=== PATIENT | male | born 1960 | race Caucasian/White ===

== ENCOUNTER 2019-05-22 16:51 | Inpatient (IN) | payer BC ==
[~2019-05-22] VITALS: Ht 177.8 cm; Wt 110.8 kg
[2019-05-22 17:05] VITALS: BP 142/71
[2019-05-22 17:15] LABS: ABSOLUTE BASOPHILS 0.1 thou/uL (0.0-0.2); ABSOLUTE LYMPHOCYTES 0.8 thou/uL (0.8-5.3); ABSOLUTE MONOCYTES 1.4 thou/uL (0.0-1.2); ABSOLUTE NEUTROPHILS 11.4 thou/uL (1.6-8.1); BASOPHILS 0.5 %; EOSINOPHILS 0.1 %; HEMATOCRIT 44.2 % (42.0-52.0); HEMOGLOBIN 15.3 gm/dL (14.0-18.0); LYMPHOCYTES 5.7 %; MCH 31.5 pg (26.0-34.0); MCHC 34.6 g/dL (28.0-37.0); MCV 91.1 fL (80.0-100.0); MPV 8.8 fl. (7.2-11.1); NUCLEATED RBCS 0 /100WBC; PLATELET COUNT* 185 thou/uL (150-400); POLYS 83.7 %; RBC 4.85 mil/uL (4.50-6.00); RDW-CV 12.4 % (10.5-14.5); WBC 13.6 thou/uL (4.0-11.0)
[2019-05-22 17:24] LABS: CALCIUM 8.5 mg/dL (8.5-10.1); CREATININE 0.9 mg/dL (0.6-1.3); POTASSIUM 4.1 mmol/L (3.5-5.1)
[2019-05-22 17:28] LABS: ALBUMIN 4.1 g/dL (3.4-5.0); TOTAL BILIRUBIN 0.9 mg/dL (<0.1-1.0); TOTAL PROTEIN 7.1 g/dL (6.4-8.2)
[2019-05-22 19:01] LABS: URINE BILIRUBIN NEGATIVE (Negative); URINE BLOOD TRACE (Negative); URINE CLARITY CLEAR; URINE COLOR YELLOW; URINE GLUCOSE-RANDOM NEGATIVE (Negative); URINE KETONES TRACE (Negative); URINE LEUKOCYTES-REFLEX NEGATIVE (Negative); URINE NITRITE-REFLEX NEGATIVE (Negative); URINE PROTEIN TRACE (Negative); URINE SPECIFIC GRAVITY >= 1.030 (1.005-1.030); URINE UROBILINOGEN 0.2 E.U./dl (0.2-1.0)
[2019-05-22 19:08] LABS: AMP/METHAMP Negative (Negative); BARBITURATES Negative (Negative); BENZODIAZEPINES Negative (Negative); COCAINE Negative (Negative); METHADONE Negative (Negative); OPIATES Negative (Negative); PCP Negative (Negative); THC Negative (Negative)
[2019-05-22 21:00] VITALS: BP 139/78
[2019-05-22 21:02] VITALS: BP 140/74
[2019-05-23] VITALS (15 sets, daily range): BP systolic 100–127; BP diastolic 42–72
--- NOTE | 2019-05-23 07:00 | NUR ---
Pt admitted at 2100 from ED. Pt's nausea resolved prior to arrival to floor, no complaints. Remains on Heparin gtt. SR per monitor, VSS. NPO since MN for Cardiology consult. Pt's stayed in pt's room overnight. Will continue to monitor.
--- NOTE | 2019-05-23 08:00 | NUR ---
AM ASSESSMENT COMPLETE, DEFER TO COMPUTER CHARTING. PIGMENT PRESSER TRACKING SR. DENIES CHEST PAIN, NAUSEA, DIZZINESS OR ANY DISCOMFORT AT THIS TIME. IV HEAPRIN INFUSING. INSTURCTED TO NOTIFY NURSING PROMPTLY IF HAVING CHEST PAIN OR ANY CHANGE IN CONDITION. FAMILY AT BEDSIDE. CALL LIGHT WTIHIN REACH. WILL MONITOR.
[2019-05-23 09:34] LABS: CHOLESTEROL 156 mg/dL (<200); HDL CHOLESTEROL 40 mg/dL (>40); LDL CHOLESTEROL 88 mg/dL (<100); TC:HDL 3.9 Ratio (Not establshd); TRIGLYCERIDE 141 mg/dL (<150); VLDL 28 mg/dL (<40)
[2019-05-23 09:35] LABS: SERUM ASSESSMENT Clear
--- NOTE | 2019-05-23 09:52 | NUR ---
TO EDITORIAL WRITER VIA BED
--- NOTE | 2019-05-23 11:48 | EKG ---
[place] [address] ELECTROCARDIOGRAM REPORT Name: LINA WILLIS Room: [address] ADM IN .R.#: [id number] Admission: 05/22/19 Attend Phys: Susi Mcgarry MD Discharge: Date of : 64 Report #: [id number] THIS REPORT FOR: //name// [facility] ED Test Date: 2019-05-22 Test Time: 18:03:34 Pat Name: LINA WILLIS Department: Room: [facility] Gender: M Histology Tech: : 1960 Requested By: Miriam Byrne Order Number: [id number] MD: Alvin Pedro Measurements Intervals [place] Rate: 64 P: 23 [place]: 169 QRS: -25 QRSD: 100 T: -2 QT: 414 QTc: 427 Interpretive Statements Sinus rhythm Abnormal R-wave progression, early transition Left ventricular hypertrophy Inferior infarct, recent No previous ECG available for comparison Electronically Signed On 05-23-2019 11:48:46 CDT by Alvin Pedro [email or web address] <ELECTRONICALLY SIGNED> By: Alvin Pedro MD, [facility] 05/23/19 1148 02 02 Alvin Pedro MD, [facility] /EPI
--- NOTE | 2019-05-23 12:59 | EKG ---
[place] [address] ELECTROCARDIOGRAM REPORT Name: LINA WILLIS Room: [address] ADM IN M.R.#: [id number] Admission: 05/22/19 Attend Phys: Susi Mcgarry MD Discharge: Date of : 64 Report #: [id number] THIS REPORT FOR: //name// [facility] ED Test Date: 2019-05-22 Test Time: 17:43:17 Pat Name: LINA WILLIS Department: Room: [address] Gender: M Tariff Clerk: : 1960 Requested By: Miriam Byrne Order Number: [id number] Reading MD: Storm Shabazz Measurements Intervals [place] Rate: 61 P: 25 [place]: 167 QRS: -24 QRSD: 101 T: 4 QT: 396 QTc: 399 Interpretive Statements Sinus rhythm Abnormal R-wave progression, early transition Left ventricular hypertrophy Inferior infarct, recent No previous ECG available for comparison Electronically Signed On 05-23-2019 12:58:59 CDT by Storm Shabazz [email or web address] <ELECTRONICALLY SIGNED> By: Lambert Shabazz MD, [facility] 05/23/19 1258 [id number] Lambert Shabazz MD, [facility] /EPI
--- NOTE | 2019-05-23 13:15 | EKG ---
[place] [address] ELECTROCARDIOGRAM REPORT Name: LINA WILLIS Room: [address] ADM IN M.R.#: [id number] Admission: 05/22/19 Attend Phys: Susi Mcgarry MD Discharge: Date of : 64 Report #: [id number] THIS REPORT FOR: //name// [facility] Test Date: 2019-05-23 Test Time: 11:45:43 Pat Name: LINA WILLIS Department: Room: [address] Gender: M Medicaid Specialist: : 1960 Requested By: Alvin Pedro Order Number: [id number] Reading MD: Storm Shabazz Measurements Intervals [place] Rate: 69 P: 40 [place]: 173 QRS: -11 QRSD: 106 T: -29 QT: 398 QTc: 427 Interpretive Statements Sinus rhythm Inferoposterior infarct, age indeterminate, likely recent Compared to ECG 05/22/2019 18:03:34 Left ventricular hypertrophy no longer present Myocardial infarct finding still present Electronically Signed On 05-23-2019 13:15:05 CDT by Storm Shabazz [email or web address] <ELECTRONICALLY SIGNED> By: Lambert Shabazz MD, [facility] 05/23/19 1315 1145 1145 FIssac Shabazz MD, [facility] /EPI
--- NOTE | 2019-05-23 13:56 | NUR ---
Pt was out of room when CM went to assess, will f/u later
--- NOTE | 2019-05-23 15:32 | CARD ---
[address] [address] CARDIAC CATH REPORT Name: LINA WILLIS Room: [address] IN M.R.#: [id number] Admission: 05/22/19 Attend Phys: Susi Mcgarry MD Discharge: Date of : 64 Report #: [id number] THIS REPORT FOR: //name// APPROVED REPORT Study performed: 05/23/2019 09:12:[address] Pedro Procedures Performed Left heart catheterization left ventriculography selective coronary arteriography and percutaneous coronary intervention to the right coronary artery with deployment of sequential drug-eluting stents in the mid and distal portion; abdominal aortography Indication Non-STEMI Risk Factors Hypercholesterolemia, Hypertension Admission/Lab Medications/Medications given during procedure Angiomax bolus and infusion Procedure Narrative The patient was brought electively to the Cardiac Catheterization Laboratory and was prepped and draped in a sterile manner. The right femoral was infiltrated with 2% Lidocaine subcutaneous anesthesia. A 6 Dominican sheath was inserted into the right femoral artery. Coronary angiography was performed using coronary diagnostic catheters. The right coronary system was accessed and visualized with a Diagnostic catheter. The left coronary system was accessed and visualized with a Diagnostic catheter. The left ventricle was accessed and visualized with a Diagnostic catheter. Left ventricular/Aortic Valve gradient assessed via catheter pullback. Left ventriculogram was performed in MONTES projection. Pre-demployment femoral angiogram was performed . Closure device was deployed with a 6 Fr Angioseal. The patient tolerated the procedure well and there were no complications associated with the procedure. There was no hematoma. Diagnostic Cath Left Main 0% narrowing LAD 80% mid vessel stenosis [address] [address] CARDIAC CATH REPORT Name: LINA WILLIS Room: [address] IN [facility].#: [id number] Admission: 05/22/19 Attend Phys: Susi Mcgarry MD Discharge: Date of : 64 Report #: [id number] Circumflex 50% first marginal narrowing with total occlusion of a modest size second marginal branch Right Coronary Dominant vessel with 30% proximal narrowing, 90% tubular narrowing at the acute margin with intraluminal thrombus and 80% focal distal right coronary stenosis Left Ventriculography The left ventricle is normal in size with normal contractility. The left ventricular ejection fraction is estimated to be 55%. Left ventricular wall motion abnormalities are present. There is no mitral insufficiency. Mild inferobasilar hypokinesis is noted; abdominal aortography revealed no significant aneurysmal dilatation Hemodynamics The aortic pressure is 110/70 mmHg with a mean of 82 mmHg. The left ventricular end diastolic pressure is 18 mmHg. There was no gradient across the aortic valve upon pullback. PCI Technique Lesion Anticoagulation was achieved with Angiomax. Percutaneous coronary intervention was performed on the mid right coronary artery. The lesion stenosis prior to intervention was 90% with JOSE flow. A 6 Dominican JR4 Guide Catheter was used to engage the right ostium. BALLOON DILATION A Balloon catheter 2.0 x 15 mm trek was inserted and inflated up to 6atm for 10seconds. STENT DEPLOYMENT A drug-eluting stent 2.75 x 23 mm xience was inserted and inflated up to 17atm for 15seconds. Final angiography reveals 10 % stenosis with JOSE 3 flow. PCI Technique Lesion 2 Percutaneous Coronary Intervention was performed on the distal right coronary artery. The lesion stenosis prior to intervention was 80% with JOSE 3 flow. Stent Deployment A drug-eluting stent 2.25 x 8 mm xienxce was inserted and inflated up to 16atm for 10seconds. Final angiography reveals 0 % stenosis with JOSE [address] [place] [address] CARDIAC CATH REPORT Name: LINA WILLIS Room: [address] IN [facility]#: [id number] Admission: 05/22/19 Attend Phys: Susi Mcgarry MD Discharge: Date of : 64 Report #: [id number] flow. Conclusion #1 significant coronary artery characterized by the following A 80% focal mid LAD stenosis B 50% first marginal narrowing with total occlusion of a small second marginal branch of the circumflex C dominant right coronary artery with 30% proximal narrowing, 90% narrowing surrounding the acute margin and prominent intraluminal thrombus and 80% focal distal stenosis #2 normal global left ventricular systolic function, estimate ejection fraction 55% with mild inferobasilar hypokinesis #3 modest elevation of left ventricular end-diastolic pressure at rest #4. Abdominal aortography demonstrates no significant aneurysmal dilatation #5 successful percutaneous coronary intervention with deployment of sequential drug-eluting stents at the sites of 90% mid right coronary stenosis with local thrombus at the site and 80% distal right coronary stenosis with 10 and 0% residual narrowings, no residual thrombus, and JOSE-3 flow to the distal vessel Recommendations Cardiac Risk Reduction Program Aggressive Medical Therapy Medications Administered Aspirin (any) Prasugrel Diagnostic Cath Approved by: Alvin Pedro MD Date/Time: 05/23/2019 15:30:05 <ELECTRONICALLY SIGNED> By: Alvin Pedro MD, FAC 05/23/19 1532 1532 1532Joyvonne Pedro MD, FACC /INF
--- NOTE | 2019-05-23 16:49 | NUR ---
CONTRACT ADMINISTRATION COORDINATOR TRACKING SR. S/P CARDIAC CATH EARLIER - DRESSING REMAINS CDI TO RIGHT GROIN. IV FLUIDS INFUSING PER ORDERS. NO COMPLAINTS OF CHEST PAIN, DIZZINESS, SOA OR ANY DISCOMFORT TO NURSING AT THIS TIME. FAMILY REMAINS AT BEDSIDE. CALL LIGHT WTIHIN REACH. WILL CONITNUE WITH PLAN OF CARE.
[2019-05-24] VITALS: BP 103/56
--- NOTE | 2019-05-24 03:34 | NUR ---
ASSUMED PT CARE AT APPROX 1930. PT IS AWAKE AND ORIENTED X4. VSS ON ROOM AIR. RATE MANAGER IN PLACE TRACING SR. ASSESSMENT DONE AND CHARTED. PT DENIES PAIN AND DISCOMFORT. DRESSING ON RT GROIN REMAINED INTACT, CLEAN AND DRY. PT IS ABLE TO SLEEP MOST OF THE NIGHT. CALL LIGHT WITHIN REACH. HOURLY ROUNDING DONE FOR PT SAFETY.
[2019-05-24 03:54] VITALS: BP 117/54
[2019-05-24 04:36] LABS: HEMATOCRIT 40.1 % (42.0-52.0); HEMOGLOBIN 13.7 gm/dL (14.0-18.0); MCH 31.3 pg (26.0-34.0); MCHC 34.1 g/dL (28.0-37.0); MCV 91.8 fL (80.0-100.0); MPV 8.9 fl. (7.2-11.1); RBC 4.37 mil/uL (4.50-6.00); RDW-CV 12.5 % (10.5-14.5); WBC 7.4 thou/uL (4.0-11.0)
[2019-05-24 05:07] LABS: ALBUMIN 3.3 g/dL (3.4-5.0); CREATININE 0.9 mg/dL (0.6-1.3); POTASSIUM 3.7 mmol/L (3.5-5.1); TOTAL BILIRUBIN 0.8 mg/dL (<0.1-1.0); TOTAL PROTEIN 6.2 g/dL (6.4-8.2)
[2019-05-24 05:08] LABS: TROPONIN-I LEVEL 14.72 ng/mL (<0.06)
--- NOTE | 2019-05-24 07:05 | NUR ---
CHANGE OF SHIFT BEDSIDE REPORT GIVEN PATIENT SEEN AT BEDSIDE, IN BED RESTING ASSUMED PATIENT CARE
[2019-05-24 08:00] VITALS: BP 111/76
[2019-05-24 09:45] VITALS: BP 111/68
[2019-05-24 11:54] VITALS: BP 108/69
[2019-05-24 13:45] VITALS: BP 111/68
[2019-05-24] MEDS ORDERED: NITROGLYCERIN0.4 MG SUBLING (14:17)
[2019-05-24] MEDS ORDERED: EFFIENT10 MG PO (14:17)
[2019-05-24] MEDS ORDERED: ATORVASTATIN CA20 MG PO (14:17)
[2019-05-24] MEDS ORDERED: CARVEDILOL3.125 MG PO (14:17)
[2019-05-24] MEDS ORDERED: ASPIRIN EC81 M1 PO (14:18)
--- NOTE | 2019-05-24 14:45 | NUR ---
PATIENT DISCHARGED TO HOME DISCHARGE INSTRUCTIONS GIVEN, ACKNOWLEDGED, SIGNED COPIES GIVEN IV AND HEART MONITOR REMOVED PERSONAL BELONGINGS RETURNED ASSISTED OUT VIA GOOD CONDITION TO WAITING CAR
--- NOTE | 2019-05-26 13:04 | EKG ---
[place] [address] ELECTROCARDIOGRAM REPORT Name: LINA WILLIS Room: [address] DIS IN M.R.#: [id number] Admission: 05/22/19 Attend Phys: Susi Mcgarry MD Discharge: 05/24/19 Date of : 64 Report #: [id number] THIS REPORT FOR: //name// [facility] Test Date: 2019-05-24 Test Time: 03:38:32 Pat Name: LINA WILLIS Department: Room: [address] Gender: M Animal Geneticist: [email or web address] : 1960 Requested By: Alvin Pedro Order Number: [id number] Allie MD: Fito Jurado Measurements Intervals [place] Rate: 67 P: 34 [place]: 180 QRS: -4 QRSD: 100 T: -23 QT: 393 QTc: 415 Interpretive Statements Sinus rhythm Abnormal R-wave progression, early transition Inferior infarct, recent Baseline wander in lead(s) V5,V6 Compared to ECG 05/23/2019 11:45:43 No significant changes Electronically Signed On 05-26-2019 13:04:36 CDT by Fito Jurado [email or web address] <ELECTRONICALLY SIGNED> By: Fito Jurado MD, [facility] 05/26/19 1304 0338 0338 Fito Jurado MD, [facility] /EPI
--- NOTE | 2019-05-26 13:05 | EKG ---
[place] [address] ELECTROCARDIOGRAM REPORT Name: LINA WILLIS Room: [address] DIS IN M.R.#: [id number] Admission: 05/22/19 Attend Phys: Susi Mcgarry MD Discharge: 05/24/19 Date of : 64 Report #: [id number] THIS REPORT FOR: //name// [facility] Test Date: 2019-05-24 Test Time: 03:39:34 Pat Name: LINA WILLIS Department: Room: [address] Gender: M Recreational Facilities Motel Manager: [email or web address] : 1960 Requested By: Susi Mcgarry Order Number: [id number] Reading MD: Fito Jurado Measurements Intervals [place] Rate: 70 P: 36 [place]: 178 QRS: -7 QRSD: 102 T: -24 QT: 404 QTc: 436 Interpretive Statements Sinus rhythm Abnormal R-wave progression, early transition Inferior infarct, recent Electronically Signed On 05-26-2019 13:04:58 CDT by Fito Jurado [email or web address] <ELECTRONICALLY SIGNED> By: Fito Jurado MD, [facility] 05/26/19 1304 0339 8 Fito Jurado MD, FACC /EPI
== END 2019-05-24 14:45 | disposition home or self-care (01) | DRG 247 ==
LOC: M.ERS 16:51 → M.2W 18:35 → M.TBA-ER 18:35 → M.2W 20:54
PROVIDERS: Internal Medicine; Physician Assistant; Registered Nurse; ADMIT Internal Medicine
PROC: 027035Z Dilation of Coronary Artery, One Artery with Two Drug-eluting Intraluminal Devices, Percutaneous Approach (ICD-10-PCS; principal; 2019-05-23)
PROC: B41F1ZZ Fluoroscopy of Right Lower Extremity Arteries using Low Osmolar Contrast (ICD-10-PCS; 2019-05-23)
PROC: 4A023N7 Measurement of Cardiac Sampling and Pressure, Left Heart, Percutaneous Approach (ICD-10-PCS; 2019-05-23)
PROC: B2151ZZ Fluoroscopy of Left Heart using Low Osmolar Contrast (ICD-10-PCS; 2019-05-23)
PROC: B2111ZZ Fluoroscopy of Multiple Coronary Arteries using Low Osmolar Contrast (ICD-10-PCS; 2019-05-23)
DX: I21.4 Non-ST elevation (NSTEMI) myocardial infarction (principal); E87.1 Hypo-osmolality and hyponatremia; R65.10 Systemic inflammatory response syndrome (SIRS) of non-infectious origin without acute organ dysfunction; E78.5 Hyperlipidemia, unspecified; Z79.82 Long term (current) use of aspirin; Z79.899 Other long term (current) drug therapy; Z82.49 Family history of ischemic heart disease and other diseases of the circulatory system

== ENCOUNTER 2019-06-13 08:52 | Observation (INO) | payer BC ==
[~2019-06-13] VITALS: Ht 177.8 cm; Wt 98.4 kg
[2019-06-13] VITALS (15 sets, daily range): BP systolic 108–144; BP diastolic 64–106
--- NOTE | ~2019-06-13 | H ---
[address] [address] HISTORY AND PHYSICAL Name: LINA WILLIS Room: [address] [place] MIssacRIssac#: [id number] Admission: 06/13/19 Attend Phys: Alvin Pedro MD, Discharge: 06/14/19 Date of : 64 Report #: [id number] THIS REPORT FOR: //name// Please refer to the History and Physical performed in the physician's office. By: 0815Medical Records Staff OMER /YARELI
[~2019-06-13 08:52] MED LIST: ASPIRIN EC81 M1 PO; ATORVASTATIN CA20 MG PO; BRILINTA90 MG PO; CARVEDILOL3.125 MG PO; EFFIENT10 MG PO; NITROGLYCERIN0.4 MG SUBLING
[2019-06-13 09:52] LABS: HEMATOCRIT 44.3 % (42.0-52.0); HEMOGLOBIN 15.1 gm/dL (14.0-18.0); MCH 31.3 pg (26.0-34.0); MCHC 34.1 g/dL (28.0-37.0); MPV 9.3 fl. (7.2-11.1); RBC 4.82 mil/uL (4.50-6.00); RDW-CV 12.3 % (10.5-14.5); WBC 5.5 thou/uL (4.0-11.0)
[2019-06-13 09:56] LABS: ANION GAP 9 mmol/L (7-16); BUN 10 mg/dL (7-18); CALCIUM 8.9 mg/dL (8.5-10.1); CHLORIDE 103 mmol/L (98-107); CO2 27 mmol/L (21-32); CREATININE 0.9 mg/dL (0.6-1.3); GLUCOSE 104 mg/dL (70-99); POTASSIUM 4.2 mmol/L (3.5-5.1); SODIUM 139 mmol/L (136-145)
[2019-06-13 09:59] LABS: APTT 30.8 Seconds (25.0-31.3); PROTIME 10.7 Seconds (9.20-11.50)
[2019-06-13 10:01] LABS: CHOLESTEROL 117 mg/dL (<200); HDL CHOLESTEROL 44 mg/dL (>40); LDL CHOLESTEROL 53 mg/dL (<100); SERUM ASSESSMENT Clear; TC:HDL 2.7 Ratio (Not establshd); TRIGLYCERIDE 102 mg/dL (<150); VLDL 20 mg/dL (<40)
--- NOTE | 2019-06-13 10:51 | EKG ---
[place] [address] ELECTROCARDIOGRAM REPORT Name: LINA WILLIS Room: [facility]#: [id number] Admission: 06/13/19 Attend Phys: Alvin Pedro MD, Discharge: Date of : 64 Report #: [id number] THIS REPORT FOR: //name// [facility] Test Date: 2019-06-13 Test Time: 09:45:20 Pat Name: LINA WILLIS Department: Room: Gender: M Optical Design Engineer: : 1960 Requested By: Alvin Pedro Order Number: [id number] Reading MD: Alvin Pedro Measurements Intervals [place] Rate: 64 P: 30 [place]: 176 QRS: -30 QRSD: 94 T: -25 QT: 412 QTc: 419 Interpretive Statements Sinus rhythm Abnormal R-wave progression, early transition Inferior infarct, age indeterminate Compared to ECG 05/24/2019 03:39:34 No significant changes Electronically Signed On 06-13-2019 10:51:10 CDT by Alvin Pedro [email or web address] <ELECTRONICALLY SIGNED> By: Alvin Pedro MD, [facility] 06/13/19 1051 Alvin Pedro MD, FAC /EPI
--- NOTE | 2019-06-13 15:04 | EKG ---
[place] [address] ELECTROCARDIOGRAM REPORT Name: LINA WILLIS Room: [address] M.R.#: [id number] Admission: 06/13/19 Attend Phys: Alvin Pedro MD, Discharge: Date of : 64 Report #: [id number] THIS REPORT FOR: //name// [facility] Test Date: 2019-06-13 Test Time: 12:47:43 Pat Name: LINA WILLIS Department: Room: [facility] Gender: M Change Management Administrator: : 1960 Requested By: Alvin Pedro Order Number: [id number] Allie MD: Alvin Pedro Measurements Intervals [place] Rate: 69 P: 34 [place]: 184 QRS: -26 QRSD: 97 T: -27 QT: 411 QTc: 441 Interpretive Statements Sinus rhythm Inferoposterior infarct, age indeterminate Compared to ECG 06/13/2019 09:45:20 No significant changes Electronically Signed On 06-13-2019 15:04:28 CDT by Alvin Pedro [email or web address] <ELECTRONICALLY SIGNED> By: Alvin Pedro MD, [facility] 06/13/19 1504 1247 1247 Alvin Pedro MD, FAC /EPI
--- NOTE | 2019-06-13 15:20 | CARD ---
[address] [address] CARDIAC CATH REPORT Name: LINA WILLIS Room: [address] M.R.#: [id number] Admission: 06/13/19 Attend Phys: Alvin Pedro MD, Discharge: Date of : 64 Report #: [id number] THIS REPORT FOR: //name// APPROVED REPORT Study performed: 06/13/2019 10:33:02 Patient Details Patient Status: Observation Room #: The patient is a 58 year-old male Event Personnel Alvin Pedro Strapper, Bethanie Guzman RN Education Director, Elio Ferguson (R) Monitor, Hannah Moses RTR Scrub, Von Dupree GED PREPARATION TEACHER Scrub, Michelle Oswald RN Education Director Procedures Performed SHAINA Place w/wo Plasty Single LAD; left heart catheterization left ventriculography and selective coronary arteriography Indication Unstable angina Risk Factors Family History, Hypercholesterolemia Previous Procedures/Diagnoses Previous PCI, Previous VT Admission/Lab Medications/Medications given during procedure Angiomax bolus and infusion Procedure Narrative The patient was brought electively to the Cardiac Catheterization Laboratory and was prepped and draped in a sterile manner. The right femoral was infiltrated with 2% Lidocaine subcutaneous anesthesia. A Jasper 6 FR sheath was inserted into the right femoral artery. Coronary angiography was performed using coronary diagnostic catheters. The right coronary system was accessed and visualized with a Diagnostic JR 4 catheter. The left coronary system was accessed and visualized with a Diagnostic JL4 catheter. The left ventricle was accessed and visualized with a Diagnostic Straight Pigtail catheter. Left ventricular/Aortic Valve gradient assessed via catheter pullback. Left ventriculogram was performed [place] [address] CARDIAC CATH REPORT Name: LINA WILLIS Room: [address] M.R.#: [id number] Admission: 06/13/19 Attend Phys: Alvin Pedro MD, Discharge: Date of : 64 Report #: [id number] Pre-demployment femoral angiogram was performed . Closure device was deployed with a Fr Angioseal STS 6Fr. The patient tolerated the procedure well and there were no complications associated with the procedure. There was no hematoma. Intraoperative Conscious Sedation Sedation start time: 11:11 Case end Time: 12:02 Fentanyl 75 mcg Versed 3 mg Fluoro Time: 13.3 minutes Dose: DAP [id number] cGycm2 1892 mGy Contrast Type and Amount: Visipaque 280 ml Coronary Angiography The patient's coronary anatomy is right dominant. Diagnostic Cath Left Main 0 percent narrowing LAD 90% mid vessel stenosis Circumflex 50% narrowing of the first marginal branch of the nondominant circumflex Right Coronary Dominant vessel with 30% proximal and distal narrowing with widely patent mid and distal right coronary stents Left Ventriculography The left ventricle is normal in size with contractility. The left ventricular ejection fraction is estimated to be 55 percent. Left ventricular wall motion abnormalities are present. There is no mitral insufficiency. Mild inferobasilar hypokinesis is noted Hemodynamics The aortic pressure is 109/59 mmHg with a mean of 62 mmHg. The left ventricular pressure is 116/3 mmHg with a mean of mmHg. The left ventricular end diastolic pressure is 11 mmHg. There was no gradient across the aortic valve upon pullback. PCI Technique Lesion Anticoagulation was achieved with Angiomax. Patient was preloaded with Angiomax IV 15 ml. Percutaneous coronary intervention was performed on the mid left anterior descending artery segment. The lesion stenosis prior to intervention was 90% with JOSE 3 flow. A 6FR XB 3.5 100CM Guide Catheter was used to engage the ostium. A IG: ProwaterFlex 180CM Interventional Guidewire was [place] [address] CARDIAC CATH REPORT Name: LINA WILLIS [address] [id number] Admission: 06/13/19 Attend Phys: Alvin Pedro MD, Discharge: Date of : 64 Report #: [id number] BALLOON DILATION A Balloon catheter Trek RX 2.25 X 12 was inserted and inflated up to 12.00atm for 13seconds. Additional Inflation: 15.00atm for 13seconds. STENT DEPLOYMENT A drug-eluting stent Xience Estee 2.20X27de was inserted and inflated up to 10.00atm for 12seconds. Additional Inflation: 10.00atm for 8seconds. Additional Inflation: 15.00atm for 12seconds. POST STENT DEPLOYMENT BALLOON DILATION A Balloon catheter NC Trek RX 2.5 X 12 was inserted and inflated up to 15.00atm for 14seconds. Additional Inflation: 15.00atm for 10seconds. Final angiography reveals 0 % stenosis with JOSE 3 flow. Conclusion #1 significant coronary artery disease characterized by the following: A 90% mid LAD stenosis B nondominant circumflex with 50% proximal first marginal narrowing C 30% proximal and distal right coronary narrowing, this being a dominant vessel with widely patent mid and distal right coronary stents #2 estimated left ventricular ejection fraction of 55% with mild inferobasilar hypokinesis #3 normal left-sided hemodynamic study #4 successful percutaneous coronary intervention with deployment of drug-eluting stent at site of 90% mid LAD stenosis with 0% residual narrowing and JOSE-3 flow the distal vessel Recommendations Cardiac Risk Reduction Program Aggressive Medical [place] [address] CARDIAC CATH REPORT Name: LINA WILLIS Room: [address] [place] M.R.#: [id number] Admission: 06/13/19 Attend Phys: Alvin Pedro MD, Discharge: Date of : 64 Report #: [id number] Ticagrelor Diagnostic Cath Approved by: Alvin Pedro MD Date/Time: 06/13/2019 15:19:09 <ELECTRONICALLY SIGNED> By: Alvin Pedro MD, [facility] 06/13/19 1520 1520 1520Joyvonne Pedro MD, [facility] /INF
[2019-06-14] VITALS (8 sets, daily range): BP systolic 104–129; BP diastolic 58–77
[2019-06-14 04:40] LABS: HEMATOCRIT 44.2 % (42.0-52.0); HEMOGLOBIN 14.9 gm/dL (14.0-18.0); MCH 31.2 pg (26.0-34.0); MCHC 33.7 g/dL (28.0-37.0); MCV 92.5 fL (80.0-100.0); MPV 9.6 fl. (7.2-11.1); RBC 4.78 mil/uL (4.50-6.00); RDW-CV 12.5 % (10.5-14.5); WBC 8.7 thou/uL (4.0-11.0)
[2019-06-14 05:06] LABS: ALBUMIN 3.7 g/dL (3.4-5.0); ALKALINE PHOSPHATASE 82 U/L (46-116); ANION GAP 7 mmol/L (7-16); BUN 10 mg/dL (7-18); CALCIUM 8.2 mg/dL (8.5-10.1); CHLORIDE 103 mmol/L (98-107); CO2 28 mmol/L (21-32); GLUCOSE 120 mg/dL (70-99); POTASSIUM 4.2 mmol/L (3.5-5.1); SGOT 12 U/L (15-37); SGPT 32 U/L (30-65); SODIUM 138 mmol/L (136-145); TOTAL BILIRUBIN 0.9 mg/dL (<0.1-1.0); TOTAL PROTEIN 6.2 g/dL (6.4-8.2); TROPONIN-I LEVEL <0.06 ng/mL (<0.06)
--- NOTE | 2019-06-14 09:56 | EKG ---
[place] [address] ELECTROCARDIOGRAM REPORT Name: LINA WILLIS Room: [address] M.R.#: [id number] Admission: 06/13/19 Attend Phys: Alvin Pedro MD, Discharge: Date of : 64 Report #: [id number] THIS REPORT FOR: //name// [facility] Test Date: 2019-06-14 Test Time: 03:34:39 Pat Name: LINA WILLIS Department: Room: [facility] Gender: M Service Desk Associate: [email or web address] : 1960 Requested By: Alvin Pedro Order Number: [id number] Reading MD: Storm Shabazz Measurements Intervals [place] Rate: 76 P: 34 [place]: 172 QRS: -25 QRSD: 93 T: -23 QT: 387 QTc: 436 Interpretive Statements Sinus rhythm Abnormal R-wave progression, early transition Inferior infarct, age indeterminate Compared to ECG 06/13/2019 12:47:43 No significant changes Electronically Signed On 06-14-2019 9:55:41 CDT by Storm Shabazz [email or web address] <ELECTRONICALLY SIGNED> By: Lambert Shabazz MD, [facility] 06/14/19 0955 0334 0334 Lambert Shabazz MD, [facility] /EPI
[2019-06-14] MEDS ORDERED: LIPITOR 20 MG T20 M1 PO (14:12)
--- NOTE | 2019-06-16 11:53 | EKG ---
[place] [address] ELECTROCARDIOGRAM REPORT Name: LINA WILLIS Room: [address] M.R.#: [id number] Admission: 06/13/19 Attend Phys: Alvin Pedro MD, Discharge: 06/14/19 Date of : 64 Report #: [id number] THIS REPORT FOR: //name// [facility] Test Date: 2019-06-13 Test Time: 20:24:14 Pat Name: LINA WILLIS Department: Room: [address] Gender: M Liner Reroll Tender: [email or web address] : 1960 Requested By: Lambert Shabazz Order Number: [id number] Reading MD: Alvin Pedro Measurements Intervals [place] Rate: 71 P: 27 [place]: 173 QRS: -25 QRSD: 96 T: -26 QT: 400 QTc: 435 Interpretive Statements Sinus rhythm Inferoposterior infarct, age indeterminate Baseline wander in lead(s) V2 Compared to ECG 06/13/2019 12:47:43 No significant changes Electronically Signed On 06-16-2019 11:53:03 CDT by Alvin Pedro [email or web address] <ELECTRONICALLY SIGNED> By: Alvin Pedro MD, [facility] 06/16/19 1153 23 23 Alvin Pedro MD, [facility] /EPI
--- NOTE | 2019-06-16 11:55 | EKG ---
[place] [address] ELECTROCARDIOGRAM REPORT Name: LINA WILLIS Room: [address] M.R.#: [id number] Admission: 06/13/19 Attend Phys: Alvin Pedro MD, Discharge: 06/14/19 Date of : 64 Report #: [id number] THIS REPORT FOR: //name// [facility] Test Date: 2019-06-14 Test Time: 08:04:06 Pat Name: LINA WILLIS Department: Room: [address] Gender: M Sanitor: : 1960 Requested By: Alvin Pedro Order Number: [id number] Allie MD: Alvin Pedro Measurements Intervals [place] Rate: 76 P: 30 DE: 174 QRS: -30 QRSD: 92 T: -23 QT: 379 QTc: 427 Interpretive Statements Sinus rhythm Inferoposterior infarct, age indeterminate Compared to ECG 06/14/2019 03:34:39 No significant changes Electronically Signed On 06-16-2019 11:54:57 CDT by Alvin Pedro [email or web address] <ELECTRONICALLY SIGNED> By: Alvin Pedro MD, [facility] 06/16/19 [id number] [phone] Alvin Pedro MD, [facility] /EPI
[2019-06-17] MEDS ORDERED: KEFLEX500 M1 PO (14:31)
--- NOTE | 2019-06-17 15:10 | D ---
[address] [address] DISCHARGE SUMMARY Name: LINA WILLIS Room: [address] Angelica M.RIssac#: [id number] Admission: 06/13/19 Attend Phys: Alvin Pedro MD, Discharge: 06/14/19 Date of : 64 Report #: [id number] THIS REPORT FOR: //name// CC: Bret Pedro DATE OF SERVICE: 06/14/2019 FINAL DISCHARGE DIAGNOSES: 1. Coronary artery disease. 2. Status post recent inferior wall myocardial infarction. 3. Status post recent stenting of the right coronary artery and stenting of the LAD on 06/13/2019. 4. Hyperlipidemia. 5. Sick sinus syndrome with syncope occurring in the evening on 06/13/2019 with a 20-second pause documented. PROCEDURES: On 06/13/2019 - left heart catheterization, left ventriculography, selective coronary arteriography and percutaneous coronary intervention with deployment of drug-eluting stent in mid LAD. The patient is a very pleasant and active 58-year-old male who presented approximately 10 days ago with acute inferior infarction interrupted by stenting of the right coronary artery at two sites. He was also noted to have significant mid LAD lesion at that time, which was not approached in the acute setting. He has underlying hyperlipidemia. He has been continued on dual antiplatelet therapy, carvedilol and statin. He was admitted on 06/13/2019 and recatheterization revealed widely patent right coronary stents with 90% mid LAD stenosis and 50% first marginal narrowing. I deployed one drug-eluting stent in the mid LAD with 0% residual narrowing and JOSE 3 flow of the distal vessel. Troponin was less than 0.06. Hemoglobin 14.9, white blood cell count 8700 with 172,000 platelets. Sodium 138, potassium 4.2, BUN 10, creatinine 1.0. Cholesterol 117, HDL 44, LDL 53, triglycerides 102. In the evening of 06/13, after urination, he developed prolonged pause with sick sinus syndrome reflected in the pause of 20 seconds. On questioning, he has had two similar episodes at home with loss of consciousness on both occasions. He clearly has post micturition syncope with sinus node dysfunction. As noted above, there was a documented pause of 20 seconds on the evening of 06/13/2019 associated with [place] [address] DISCHARGE SUMMARY Name: LINA WILLIS Room: [address] LISA Maguire#: [id number] Admission: 06/13/19 Attend Phys: Alvin Pedro MD, Discharge: 06/14/19 Date of : 64 Report #: [id number] Therefore, the patient is discharged to home on dual antiplatelet therapy and statin with beta blockade being held. I would recommend placement of a permanent pacing system, which is tentatively scheduled for 06/17/2019. In the interim, we talked about avoidance behavior. His discharge medications include aspirin 81 mg daily, atorvastatin 20 mg at bedtime, ticagrelor 90 mg b.i.d. and p.r.n. sublingual nitroglycerin. He is discharged to home in stable condition with planned placement of a permanent dual chamber pacing system on 06/17/[address] Mota. With him, the case has been reviewed. Therefore, the patient is discharged to home in stable condition with followup mechanism as iterated above. <ELECTRONICALLY SIGNED> By: Alvin Pedro MD, [facility] 06/17/19 1510 [id number] Pedro MD, [facility] /nt
== END 2019-06-14 14:30 | disposition home or self-care (01) ==
LOC: M.CL 08:52 → M.TBA-CV 12:21 → M.2W 12:21
PROVIDERS: ADMIT Internal Medicine
DX: I25.110 Atherosclerotic heart disease of native coronary artery with unstable angina pectoris (principal); I49.5 Sick sinus syndrome; E78.5 Hyperlipidemia, unspecified

== ENCOUNTER → 2019-06-17 | Outpatient (CLI) | payer BC ==
[~2019-06-17] VITALS: Ht 177.8 cm; Wt 98.4 kg
[~2019-06-17] MED LIST changes: +KEFLEX500 M1 PO; +LIPITOR 20 MG T20 M1 PO
[2019-06-17 10:24] LABS: HEMOGLOBIN 14.3 gm/dL (14.0-18.0); MCH 31.1 pg (26.0-34.0); MCV 91.5 fL (80.0-100.0); MPV 9.1 fl. (7.2-11.1); RBC 4.59 mil/uL (4.50-6.00); RDW-CV 12.4 % (10.5-14.5); WBC 5.9 thou/uL (4.0-11.0)
[2019-06-17 10:33] LABS: CALCIUM 8.7 mg/dL (8.5-10.1); CREATININE 0.9 mg/dL (0.6-1.3)
[2019-06-17 10:35] VITALS: BP 144/85
[2019-06-17 10:35] LABS: APTT 30.2 Seconds (25.0-31.3); PROTIME 10.6 Seconds (9.20-11.50)
[2019-06-17 12:15] VITALS: BP 141/71
[2019-06-17 12:30] VITALS: BP 134/78
[2019-06-17 12:45] VITALS: BP 134/78
[2019-06-17 13:00] VITALS: BP 140/81
[2019-06-17 13:59] VITALS: BP 134/75
--- NOTE | 2019-06-17 15:04 | EKG ---
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: RT : 1960 Requested By: Cesar Mota Order Number: [id number] Reading MD: Cesar Mota Measurements Intervals [place] Rate: 79 P: 38 MS: 173 QRS: -26 QRSD: 96 T: -28 QT: 394 QTc: 452 Interpretive Statements Sinus rhythm Abnormal R-wave progression, early transition Inferior infarct, age indeterminate Compared to ECG 06/14/2019 08:04:06 No significant changes Electronically Signed On 06-17-2019 15:04:17 CDT by Cesar Mota [email or web address] <ELECTRONICALLY SIGNED> By: Cesar Mota MD, [facility] 06/17/19 1504 [id number] Cesar Mota MD, FAC /EPI
--- NOTE | 2019-06-17 18:02 | CARD ---
[address] [address] CARDIAC CATH REPORT Name: LINA WILLIS Room: [facility]#: [id number] Admission: 06/17/19 Attend Phys: Cesar Mota MD Discharge: Date of : 64 Report #: [id number] THIS REPORT FOR: //name// APPROVED REPORT Study performed: 06/17/2019 10:49:06 Event Personnel: Cesar Mota Clerical Aide, Kriss Nelson RN Foundry Patternmaker, Raffy Kearns Scrmartir, Kayli White RTR Monitor Exam: Insertion of Dual Chamber Permanent Pacemaker Indications: sinus node arrest with syncope. The patient is a 58 year-old male with a history of sinus node arrest with syncope. Conscious Sedation Start time: 11:12 End Time: 11:56 Fentanyl 100 mcg Versed 4 mg Fluoro minutes: 1.8 mGy: 72 DAP: 762.76 Contrast: 20 ml Omnipaque Implanted Devices: Biotronik Eluna 8 DR Lamont Melgar, model #804443, serial #[id number] dual-chamber pulse generator. Biotronik Solia S 60, model #679314, serial #[id number] ventricular lead. Biotronik Solia S 53, model #402559, serial #[id number] atrial lead. 1. Sinus node arrest with syncope. Procedure The patient underwent informed consent. We discussed the details of the procedure including the risks, which include, but not limited to bleeding, infection, vascular damage, cardiac perforation, and pneumothorax. After informed consent was obtained the area of the left chest was prepped and draped in sterile fashion. Local anesthesia was achieved with 1% lidocaine. After an initial incision was made a device pocket was formed over the left pectoralis muscle using electrocautery and blunt dissection. Next using a micropuncture kit the left subclavian vein was accessed and ultimately a safety J guidewire advanced to the right atrium under fluoroscopic guidance. The guidewire was externally fixed with a Gloria forcep. The micropuncture kit was utilized a second time to access the left subclavian [place] [address] CARDIAC CATH REPORT Name: LINA WILLIS Room: [facility]#: [id number] Admission: 06/17/19 Attend Phys: Cesar Mota MD Discharge: Date of : 64 Report #: [id number] second 6 J guidewire advanced to the level of the right atrium under fluoroscopic guidance. A 7 Mongolian tear-away introducer was advanced over the free guidewire. The dilator and guidewire were removed and a ventricular lead advanced to a secure position within the right ventricular apex. The lead was actively fixed. Thresholds were checked and deemed to be satisfactory. There was no diaphragmatic stimulation with maximum output pacing. The tear-away introducer was then removed. Next a second 7 Mongolian tear-away introducer was advanced over the remaining guidewire. An atrial lead was advanced to a secure position within the right atrial appendage. The lead was actively fixed. Thresholds were checked and deemed to be satisfactory. There was no phrenic nerve stimulation with maximum output pacing. The tear-away introducer was then removed. Next after adequate slack was assured and the atrial and ventricular leads the leads were secured within the device pocket using the designated cuffs and interrupted stitches of 0 silk suture. The device pocket was then flushed with antibiotic solution. Next a dual-chamber pulse generator was attached to the atrial and ventricular leads. The pulse generator and redundant lead were then placed within the device pocket. The deep tissues were closed using interrupted stitches of 2-0 Vicryl. The skin incision was then closed with a single subcuticular stitch of 4-0 Vicryl. Several Steri-Strips were placed across the incision. A sterile Telfa dressing was then covered with a Tegaderm. The patient tolerated the procedure well without complication. Patient was returned to the cardiac holding area in stable condition. Electrode Parameters P Wave: 7.5 mV R Wave: 9.9 mV Atrial Threshold: 1.0 V at 0.40 ms Ventricular Threshold: 1.3 V at 0.40 ms Atrial Resistance: 505 ohms Ventricular Resistance: 485 ohms Lower 60 bpm. Upper tracking rate 130 bpm. Mode: DDDR. Conclusion 1. Sinus emily arrest with syncope. 2. Successfull placement of a dual chamber pacemaker with atrial and ventricular lead placement. Recommendations [address] [address] CARDIAC CATH REPORT Name: LINA WILLIS Room: [facility]#: [id number] Admission: 06/17/19 Attend Phys: Cesar Mota MD Discharge: Date of : 64 Report #: [id number] 1. Follow up site check in 1 week. 2. Follow up device interogation in 2 months. <ELECTRONICALLY SIGNED> By: Cesar Mota MD, FACC 06/17/191801 01 01Michaethiago Mota MD, FACC /INF
== END | disposition home or self-care (01) ==
LOC: M.CL 09:26
PROVIDERS: Internal Medicine Cardiovascular Disease
DX: I49.5 Sick sinus syndrome (principal); I25.2 Old myocardial infarction; R55 Syncope and collapse; Z95.5 Presence of coronary angioplasty implant and graft; Z98.890 Other specified postprocedural states; Z91.041 Radiographic dye allergy status; Z88.8 Allergy status to other drugs, medicaments and biological substances; Z79.82 Long term (current) use of aspirin; Z79.899 Other long term (current) drug therapy